=== PATIENT | female | born 1965 | race Caucasian/White ===

== ENCOUNTER 2021-07-27 16:33 | Emergency (ER) | payer OTHER, SELFPAY ==
--- NOTE | 2021-07-27 16:34 | XRR_ITS ---
PROCEDURE INFORMATION: Exam: XR Chest Exam date and time: 07/27/2021 4:34 PM Age: 56 years old Clinical indication: Pain; Chest pressure; Additional info: Chest pain TECHNIQUE: Imaging protocol: XR of the chest. Views: 1 view. COMPARISON: No relevant prior studies available. FINDINGS: Lungs: Unremarkable. No consolidation. Pleural spaces: Unremarkable. No pleural effusion. No pneumothorax. Heart/Mediastinum: Unremarkable. No cardiomegaly. Bones/joints: Unremarkable. XR/XR chest 1V portable [id number] IMPRESSION: No acute findings. Radiation Dose CTDIVOL = (mGy): DLP = (mGy-cm)
--- NOTE | 2021-07-27 16:34 | ECG_ITS ---
[facility] Test Date: 2021-07-27 Pat Name: Dorina Hayden Department: Room: Gender: Female Baker Apprentice: : 1965 Requested By: Gracia Liz Order Number: [id number] Reading MD: ALEENA ZAMARRIPA Measurements Intervals [place] Rate: 89 P: 16 [place]: 172 QRS: -3 QRSD: 93 T: 20 QT: 336 QTc: 409 Interpretive Statements SINUS RHYTHM ST ELEVATION, PROBABLY EARLY REPOLARIZATION [ST ELEVATION WITH NORMALLY INFLECTED T-WAVE] No previous ECG available for comparison Electronically Signed On 07-28-2021 14:30:36 CLERICAL SPECIALIST by ALEENA ZAMARRIPA [id number]
[2021-07-27 16:49] VITALS: BP 128/87; PULSE 89; RESP 27; TEMP 37.8; O2SAT 97; BMI 37.8
[2021-07-27 17:02] LABS: Basophils # 0.1 10^3/uL (0.0-0.1); Basophils % 0.5 %; Eosinophils % 0.1 %; Hematocrit 38.8 % (37.0-47.0); Hemoglobin 12.9 g/dL (11.5-15.3); Lymphocytes # 2.3 10^3/uL (0.8-4.8); Lymphocytes % 11.8 %; Mean Corpuscular HGB Conc 33.2 g/dL (30.0-36.0); Mean Corpuscular Hemoglobin 31.1 pg (28.0-34.0); Mean Corpuscular Volume 93.5 fl (81-99); Mean Platelet Volume 9.6 fL (7.4-10.4); Monocytes # 1.6 10^3/uL (0.2-0.9); Neutrophils # 15.36 10^3/uL (1.8-7.7); Neutrophils % 79.1 %; Nucleated Red Blood Cells % 0 %; Platelet Count 314 10^3/cmm (130-400); Red Blood Count 4.15 10^6/uL (4.1-5.3); Red Cell Distribution Width 12.3 % (12.1-15.1); White Blood Count 19.4 10^3/uL (4.0-10.0)
[2021-07-27 17:10] VITALS: BP 106/65; PULSE 88; RESP 17; O2SAT 97
[2021-07-27 17:16] LABS: D Dimer 0.35 ug/mIFEU (0-0.59)
[2021-07-27 17:30] VITALS: BP 104/60; PULSE 87; RESP 18; O2SAT 96
[2021-07-27 17:34] LABS: Alanine Aminotransferase 14 U/L (0-33); Albumin Level 4.3 g/dL (3.5-5.2); Alkaline Phosphatase 79 IU/L (35-105); Anion Gap 17.2 (5-19); Aspartate Amino Transferase 15 U/L (0-32); Blood Urea Nitrogen 10 mg/dL (6-20); Calcium 9.2 mg/dL (8.5-10.5); Carbon Dioxide 24 mmol/L (22-29); Chloride 97 mmol/L (98-107); Globulin 3.6 g/dL (1.3-4.6); Glomerular Filtration Rate 103.8 mL/min (90-130); Glucose 136 mg/dL (65-115); Osmolality Calculated 279 mOsm/kg (285-295); Potassium 4.2 mmol/L (3.5-5.1); Sodium 134 mmol/L (136-145); Total Protein 7.9 g/dL (6.6-8.7)
[2021-07-27 17:35] LABS: Troponin(5th) Baseline 6 ng/L (0-10)
--- NOTE | 2021-07-27 17:51 | CTR_ITS ---
PROCEDURE INFORMATION: Exam: CT Chest With Contrast; Diagnostic Exam date and time: 07/27/2021 5:51 PM Age: 56 years old Clinical indication: Abdominal pain; Chest pressure; Additional info: Chest pain, fever, leukocytosis TECHNIQUE: Imaging protocol: Diagnostic computed tomography of the chest with contrast. Radiation optimization: All CT scans at this facility use at least one of these dose optimization techniques: automated exposure control; mA and/or kV adjustment per patient size (includes targeted exams where dose is matched to clinical indication); or iterative reconstruction. Contrast material: OMNI 300; Contrast volume: 95 ml; Contrast route: INTRAVENOUS (IV); COMPARISON: CR (CHEST, ) 07/27/2021 4:58 PM RADIATION DOSE METRICS: Total DLP (mGy-cm): 1774.83 FINDINGS: Lungs: Minor curvilinear atelectasis or scarring at the lung bases and lingula. No consolidation. No masses. Pleural spaces: Unremarkable. No pneumothorax. No pleural effusion. Heart: No cardiomegaly. Small volume pericardial effusion. Aorta: Unremarkable. No aortic aneurysm. Lymph nodes: Unremarkable. No enlarged lymph nodes. Bones/joints: No acute fracture. Soft tissues: 1.8 cm rounded cystic collection in the subcutaneous tissues of the mid back most likely a sebaceous cyst. IMPRESSION: 1. No infectious source identified within the chest. 2. Small volume pericardial effusion. PROCEDURE INFORMATION: Exam: CT Abdomen And Pelvis With Contrast Exam date and time: 07/27/2021 5:51 PM Age: 56 years old Clinical indication: Abdominal pain; Chest pressure; Additional info: Chest pain, fever, leukocytosis TECHNIQUE: Imaging protocol: Computed tomography of the abdomen and pelvis with contrast. Radiation optimization: All CT scans at this facility use at least one of these dose optimization techniques: automated exposure control; mA and/or kV adjustment per patient size (includes targeted exams where dose is matched to clinical indication); or iterative reconstruction. Contrast material: OMNI 300; Contrast volume: 95 ml; Contrast route: INTRAVENOUS (IV); COMPARISON: CR (CHEST, ) 07/27/2021 4:58 PM RADIATION DOSE METRICS: Total DLP (mGy-cm): 1774.83 FINDINGS: Liver: Severe hepatic steatosis. No mass. Gallbladder and bile ducts: Trace stone/calcific debris. No gallbladder wall thickening No ductal dilation. Pancreas: Normal. No ductal dilation. Spleen: Normal. No splenomegaly. Adrenal glands: Normal. No mass. Kidneys and ureters: Normal. No hydronephrosis. Stomach and bowel: Unremarkable. No obstruction. No mucosal thickening. Appendix: No evidence of appendicitis. Intraperitoneal space: Unremarkable. No free air. No significant fluid collection. Vasculature: Unremarkable. No abdominal aortic aneurysm. Lymph nodes: Unremarkable. No enlarged lymph nodes. Urinary bladder: Unremarkable as visualized. Reproductive: Hysterectomy. Bones/joints: No acute fracture. Soft tissues: Unremarkable. CT/CT chest abd pel w con* IMPRESSION: 1. No infectious source identified within the abdomen. 2. Severe hepatic steatosis. 3. Trace cholelithiasis/calcified debris. Radiation Dose CTDIVOL = (mGy): DLP = 1774.83~1774.83 (mGy-cm)
--- NOTE | 2021-07-27 17:52 | ED_ITS ---
Documented by User: Mitra Troy MD 07/27/21 19:22 HPI - Chest Pain General: Chief Complaint: Chest Pain Stated Complaint: Chest Pain since early AM Time Seen by Provider: 07/27/21 16:48 Source: patient History of Present Illness: HPI narrative: 56-year-old female woke up with chest pain this morning radiating through to her back. Pain is constant, burning, aching. Associated upper abdominal bloating and indigestion. History of multiple gastric surgeries in the past, and has had similar pain in the past. No known history of coronary artery disease PE, No recent fever or upper respiratory symptoms. took 650mg aspirin earlier today. complaint: chest pain and chest discomfort Onset (ago): hour(s) Timing of current episode: constant and still present Onset: during rest Pain location: substernal Pain radiation: back Quality: tightness, aching and heaviness Relieving factors: nothing Exacerbating factors: nothing Associated symptoms: Reports abdominal pain and nausea; Deny diaphoresis, dyspnea, fever(s), palpitations, syncope or vomiting Review of Systems General: Reports: 10 or more systems reviewed and unremarkable except in HPI and below Const: Reports: change in appetite and malaise; Denies: fever(s), chills, body aches, night sweats or diaphoresis Eyes: Denies: change in vision or blurry vision ENMT: Denies: throat pain, enlarged tonsils, odynophagia or hoarseness Card: Reports: chest pain; Denies: palpitations, irregular heart rhythm, edema, swelling of feet/ankles, syncope, dyspnea on exertion or orthopnea Resp: Denies: dyspnea, productive cough, non-productive cough, stridor, pain on inspiration or chest congestion GI: Reports: abdominal pain, nausea, heartburn, early satiety and bloating; Denies: vomiting : Denies: difficulty voiding or dysuria Musc: Reports: back pain; Denies: neck pain Skin/Breast: Denies: rash, pruritus or erythema Neuro: Denies: numbness in extremities or weakness in extremities Endo: Denies: polyuria or polydipsia Physical Exam Const: COMMON NORMALS: patient oriented x3, healthy appearing and alert GENERAL APPEARANCE: well kempt, well developed and anxious; not in distress and not ill appearing NUTRITIONAL APPEARANCE: overweight HENMT: COMMON NORMALS: normocephalic and atraumatic HEAD & SCALP: normocephalic and atraumatic FACE & SINUS: normal facial exam and face symmetric Eye: COMMON NORMALS: Equal, round and reactive pupils present, EOMs intact bilaterally, conjunctivae normal and no scleral icterus CONJUNCTIVA: Yes conjunctivae normal PUPIL: Yes Equal, round and reactive pupils present Neck/C-Spine: COMMON NORMALS: full ROM, no lymphadenopathy and no JVD Chest: COMMONS NORMALS: normal inspection of the chest and normal palpation of entire chest wall CHEST: No tenderness and No Ecchymosis present Resp: COMMON NORMALS: normal respiratory effort and No use of accessory muscles EFFORT & INSPECTION: Yes able to speak in complete sentences, Yes tachypneic, No respiratory distress, No labored, No grunting and No Actively coughing Cardio: COMMON NORMALS: no JVD, regular rate, regular rhythm, S1 normal heart sound present and S2 normal heart sound present RATE: regular rate RHYTHM: regular rhythm HEART SOUNDS: S1 normal heart sound present and S2 normal heart sound present GI: PALPATION: Yes Tenderness to palpation present (GI) (epigastric, sub xiphoid), No Hernia present, No Palpable mass present, No Pulsatile mass present, No Ascites present, No Abdominal wall crepitus present and No Rebound tenderness present : EXTERNAL FEMALE EXAM: No Hernia present Extremity: COMMON NORMALS: normal to inspection, capillary refill normal, no clubbing, cyanosis or edema, no calf tenderness and no pedal edema Neuro: COMMON NORMALS: patient oriented x3, CN's II-XII intact bilaterally, moves all extremities and no focal motor deficits SENSORIUM/ORIENTATION: Yes alert Psych: APPEARANCE: Yes well kempt Skin: COMMON NORMALS: no rashes or lesions noted, no wounds, turgor normal and no jaundice GENERAL SKIN EXAM: no rashes or lesions noted and turgor normal Course Vital Signs: Vital signs: Vital Signs Temperature 100.0 F H 07/27/21 16:49 Pulse Rate 100 07/27/21 20:13 Respiratory Rate 16 07/27/21 20:13 Blood Pressure 103/69 07/27/21 20:13 Pulse Oximetry 96 07/27/21 20:13 MDM - Chest Pain MDM Narrative: Medical decision making narrative: 56 year old female with no cardiac history presenting with mid sternal pain since waking up this morning. Initial EKG had some possible ST changes, difficult to r/out due to wandering baseline and artifact. Repeat EKG did not show any concerning ST elevation. Further workup is in progress to eval for other possible etiologies including acute PE, pneumonia, Cholecystitis, aortic dissection. Signed out to Dr Savage at 1800 Medical Records: Attestation: I reviewed the patient's medical records. Lab Data: Attestation: I reviewed the patient's lab results. Labs: Lab Results 07/27/21 07/27/21 07/27/21 16:50 16:50 16:51 WBC RBC Hgb Hct MCV MCH MCHC RDW Plt Count MPV Neut % (Auto) Lymph % (Auto) Carson % (Auto) Eos % (Auto) Baso % (Auto) Neut # (Auto) Lymph # (Auto) Carson # (Auto) Eos # (Auto) Baso # (Auto) Nucleated RBC % (a uto) Nucleated RBCs # D-Dimer 0.35 ug/mIFEU ug/ mIFEU (0-0.59) Sodium Potassium Chloride Carbon Dioxide Anion Gap BUN Creatinine GFR Calculation Glucose Calculated Osmolal ity Lactic Acid 2.2 mmol/L mmol/L (0.5-2.2) Calcium Total Bilirubin AST ALT Alkaline Phosphata se Troponin T Baselin e Troponin T 120 Min [place] Troponin T C-Reactive Protein 73.0 mg/L H mg/L (0.0-4.9) Total Protein Albumin Globulin Urine Color Urine Appearance Urine pH Ur Specific Gravit y Urine Protein Urine Glucose (UA) Urine Ketones Urine Blood Urine Nitrate Urine Bilirubin Urine Urobilinogen Ur Leukocyte Maia ase Urine RBC Urine WBC Ur Squamous Epith Cells Amorphous Sediment Urine Bacteria SARS-CoV-2 Ag (Rap id) 07/27/21 07/27/21 07/27/21 16:57 16:57 16:57 WBC 19.4 10^3/uL H 10 ^3/uL (4.0-10.0) RBC 4.15 10^6/uL 10^6 /uL (4.1-5.3) Hgb 12.9 g/dL g/dL (11.5-15.3) Hct 38.8 % % (37.0-47.0) MCV 93.5 fl fl (81-99) MCH 31.1 pg pg (28.0-34.0) MCHC 33.2 g/dL g/dL (30.0-36.0) RDW 12.3 % % (12.1-15.1) Plt Count 314 10^3/cmm 10^3 /cmm (130-400) MPV 9.6 fL fL (7.4-10.4) Neut % (Auto) 79.1 % % Lymph % (Auto) 11.8 % % Carson % (Auto) 8.0 % % Eos % (Auto) 0.1 % % Baso % (Auto) 0.5 % % Neut # (Auto) 15.36 10^3/uL H 1 0^3/uL (1.8-7.7) Lymph # (Auto) 2.3 10^3/uL 10^3/ uL (0.8-4.8) Carson # (Auto) 1.6 10^3/uL H 10^ 3/uL (0.2-0.9) Eos # (Auto) 0.0 10^3/uL 10^3/ uL (0.0-0.8) Baso # (Auto) 0.1 10^3/uL 10^3/ uL (0.0-0.1) Nucleated RBC % (a uto) 0 % % Nucleated RBCs # 0.0 /100WBC /100W BC D-Dimer Sodium 134 mmol/L L mmol /L (136-145) Potassium 4.2 mmol/L mmol/L (3.5-5.1) Chloride 97 mmol/L L mmol/ L (98-107) Carbon Dioxide 24 mmol/L mmol/L (22-29) Anion Gap 17.2 (5-19) BUN 10 mg/dL mg/dL (6-20) Creatinine 0.6 mg/dL mg/dL (0.5-0.9) GFR Calculation 103.8 mL/min mL/m in (90-130) Glucose 136 mg/dL H mg/dL (65-115) Calculated Osmolal ity 279 mOsm/kg L mOs m/kg (285-295) Lactic Acid Calcium 9.2 mg/dL mg/dL (8.5-10.5) Total Bilirubin 1.0 mg/dL mg/dL (0.15-1.2) AST 15 U/L U/L (0-32) ALT 14 U/L U/L (0-33) Alkaline Phosphata se 79 IU/L IU/L (35-105) Troponin T Baselin e 6 ng/L ng/L (0-10) Troponin T 120 Min [place] Troponin T C-Reactive Protein Total Protein 7.9 g/dL g/dL (6.6-8.7) Albumin 4.3 g/dL g/dL (3.5-5.2) Globulin 3.6 g/dL g/dL (1.3-4.6) Urine Color Urine Appearance Urine pH Ur Specific Gravit y Urine Protein Urine Glucose (UA) Urine Ketones Urine Blood Urine Nitrate Urine Bilirubin Urine Urobilinogen Ur Leukocyte Maia ase Urine RBC Urine WBC Ur Squamous Epith Cells Amorphous Sediment Urine Bacteria SARS-CoV-2 Ag (Rap id) 07/27/21 07/27/21 07/27/21 18:54 18:55 19:13 WBC RBC Hgb Hct MCV MCH MCHC RDW Plt Count MPV Neut % (Auto) Lymph % (Auto) Carson % (Auto) Eos % (Auto) Baso % (Auto) Neut # (Auto) Lymph # (Auto) Carson # (Auto) Eos # (Auto) Baso # (Auto) Nucleated RBC % (a uto) Nucleated RBCs # D-Dimer Sodium Potassium Chloride Carbon Dioxide Anion Gap BUN Creatinine GFR Calculation Glucose Calculated Osmolal ity Lactic Acid Calcium Total Bilirubin AST ALT Alkaline Phosphata se Troponin T Baselin e Troponin T 120 Min [place] 6.10 ng/L ng/L (0-10) Delta Troponin T 0.10 ABS# ABS# (0-10) C-Reactive Protein Total Protein Albumin Globulin Urine Color Yellow (Yellow) Urine Appearance Clear (CLEAR) Urine pH 7 (5-7) Ur Specific Gravit y 1.005 (1.005-1.030) Urine Protein Trace (Negative) Urine Glucose (UA) Norm (Normal) Urine Ketones Negative (Negative) Urine Blood Neg (Negative) Urine Nitrate Negative (Negative) Urine Bilirubin Neg (Negative) Urine Urobilinogen Norm mg/dL mg/dL (Negative) Ur Leukocyte Maia ase Negative (Negative) Urine RBC 0-4 /hpf H /hpf (0-2) Urine WBC 0-4 /hpf H /hpf (0-5) Ur Squamous Epith Cells 0-4 /hpf H /hpf (0-5) Amorphous Sediment Not Reportable Urine Bacteria Trace /hpf /hpf (NONE) SARS-CoV-2 Ag (Rap id) Negative (Negative) EKG Data^: EKG 1: Attestation: I personally reviewed and interpreted this EKG as follows: EKG interpretation date: 07/27/21 EKG interpretation time: 16:50 Prior EKG tracings: not available for review Ischemic changes: ST elevation, non-specific ST-T wave changes and t wave inversions Computer generated interpretation: Normal sinus rhythm, rate 96, [place] 176, QRS 89, QTc 382, normal axis, abnormal ST segments in ll/ AVF, EKG 2: Attestation: I personally reviewed and interpreted this EKG as follows: EKG interpretation date: 07/27/21 EKG interpretation time: 16:52 Prior EKG tracings: available for review Interpretation: Sinus rhythm with a rate of 89, no acute STEMI, changes consistent with early repolarization. No abnormal T wave inversions or strain pattern. Discharge Plan Discharge Patient Disposition: Home Clinical Impression: Chest pain, Leukocytosis Condition: Stable Prescriptions: New cephalexin 500 mg capsule 500 mg PO TID 7 Days Qty: 21 RF: 0 Discharge Orders: Discharge ED (Routine); Ordered 07/27/21 Ordered By: Tierra Savage Referrals: Molly Nunez APN [Primary Care Provider] - 1-3 days Discharge Diet: Advance as tolerated Discharge Activity: Resume usual activity Patient Instructions: Chest Pain (ED) Coding Level of Care Code ED Medical Economics Consultant for Chg Fwd Exam Comprehensive Documented by User: Tierra Savage MD 07/27/21 20:39 HPI - Chest Pain General: Chief Complaint: Chest Pain Stated Complaint: Chest Pain since early AM Time Seen by Provider: 07/27/21 16:48 Course Vital Signs: Vital signs: Vital Signs Temperature 100.0 F H 07/27/21 16:49 Pulse Rate 100 07/27/21 20:13 Respiratory Rate 16 07/27/21 20:13 Blood Pressure 103/69 07/27/21 20:13 Pulse Oximetry 96 07/27/21 20:13 MDM - Chest Pain MDM Narrative: Medical decision making narrative: Patient presents here with chest pain is atypical in nature sharp pains complete resolved initial repeat EKG showed no STEMI she does have some repolarization initial repeat troponins are negative she does have a slight fever no white count no definite source of infection is found will prescribe her Keflex she is to follow-up with her PCP in 5 days for repeat white count. I did offer admission she states she feels improved would like to go home I feel she is stable for discharge at this time. Lab Data: Labs: Lab Results 07/27/21 07/27/21 07/27/21 16:50 16:50 16:51 WBC RBC Hgb Hct MCV MCH MCHC RDW Plt Count MPV Neut % (Auto) Lymph % (Auto) [place] % (Auto) Eos % (Auto) Baso % (Auto) Neut # (Auto) Lymph # (Auto) Carson # (Auto) Eos # (Auto) Baso # (Auto) Nucleated RBC % (a uto) Nucleated RBCs # D-Dimer 0.35 ug/mIFEU ug/ mIFEU (0-0.59) Sodium Potassium Chloride Carbon Dioxide Anion Gap BUN Creatinine GFR Calculation Glucose Calculated Osmolal ity Lactic Acid 2.2 mmol/L mmol/L (0.5-2.2) Calcium Total Bilirubin AST ALT Alkaline Phosphata se Troponin T Baselin e Troponin T 120 Min [place] Troponin T C-Reactive Protein 73.0 mg/L H mg/L (0.0-4.9) Total Protein Albumin Globulin Urine Color Urine Appearance Urine pH Ur Specific Gravit y Urine Protein Urine Glucose (UA) Urine Ketones Urine Blood Urine Nitrate Urine Bilirubin Urine Urobilinogen Ur Leukocyte Maia ase Urine RBC Urine WBC Ur Squamous Epith Cells Amorphous Sediment Urine Bacteria SARS-CoV-2 Ag (Rap id) 07/27/21 07/27/21 07/27/21 16:57 16:57 16:57 WBC 19.4 10^3/uL H 10 ^3/uL (4.0-10.0) RBC 4.15 10^6/uL 10^6 /uL (4.1-5.3) Hgb 12.9 g/dL g/dL (11.5-15.3) Hct 38.8 % % (37.0-47.0) MCV 93.5 fl fl (81-99) MCH 31.1 pg pg (28.0-34.0) MCHC 33.2 g/dL g/dL (30.0-36.0) RDW 12.3 % % (12.1-15.1) Plt Count 314 10^3/cmm 10^3 /cmm (130-400) MPV 9.6 fL fL (7.4-10.4) Neut % (Auto) 79.1 % % Lymph % (Auto) 11.8 % % Carson % (Auto) 8.0 % % Eos % (Auto) 0.1 % % Baso % (Auto) 0.5 % % Neut # (Auto) 15.36 10^3/uL H 1 0^3/uL (1.8-7.7) Lymph # (Auto) 2.3 10^3/uL 10^3/ uL (0.8-4.8) Carson # (Auto) 1.6 10^3/uL H 10^ 3/uL (0.2-0.9) Eos # (Auto) 0.0 10^3/uL 10^3/ uL (0.0-0.8) Baso # (Auto) 0.1 10^3/uL 10^3/ uL (0.0-0.1) Nucleated RBC % (a uto) 0 % % Nucleated RBCs # 0.0 /100WBC /100W BC D-Dimer Sodium 134 mmol/L L mmol /L (136-145) Potassium 4.2 mmol/L mmol/L (3.5-5.1) Chloride 97 mmol/L L mmol/ L (98-107) Carbon Dioxide 24 mmol/L mmol/L (22-29) Anion Gap 17.2 (5-19) BUN 10 mg/dL mg/dL (6-20) Creatinine 0.6 mg/dL mg/dL (0.5-0.9) GFR Calculation 103.8 mL/min mL/m in (90-130) Glucose 136 mg/dL H mg/dL (65-115) Calculated Osmolal ity 279 mOsm/kg L mOs m/kg (285-295) Lactic Acid Calcium 9.2 mg/dL mg/dL (8.5-10.5) Total Bilirubin 1.0 mg/dL mg/dL (0.15-1.2) AST 15 U/L U/L (0-32) ALT 14 U/L U/L (0-33) Alkaline Phosphata se 79 IU/L IU/L (35-105) Troponin T Baselin e 6 ng/L ng/L (0-10) Troponin T 120 Min [place] Troponin T C-Reactive Protein Total Protein 7.9 g/dL g/dL (6.6-8.7) Albumin 4.3 g/dL g/dL (3.5-5.2) Globulin 3.6 g/dL g/dL (1.3-4.6) Urine Color Urine Appearance Urine pH Ur Specific Gravit y Urine Protein Urine Glucose (UA) Urine Ketones Urine Blood Urine Nitrate Urine Bilirubin Urine Urobilinogen Ur Leukocyte Maia ase Urine RBC Urine WBC Ur Squamous Epith Cells Amorphous Sediment Urine Bacteria SARS-CoV-2 Ag (Rap id) 07/27/21 07/27/21 07/27/21 18:54 18:55 19:13 WBC RBC Hgb Hct MCV MCH MCHC RDW Plt Count MPV Neut % (Auto) Lymph % (Auto) Carson % (Auto) Eos % (Auto) Baso % (Auto) Neut # (Auto) Lymph # (Auto) Carson # (Auto) Eos # (Auto) Baso # (Auto) Nucleated RBC % (a uto) Nucleated RBCs # D-Dimer Sodium Potassium Chloride Carbon Dioxide Anion Gap BUN Creatinine GFR Calculation Glucose Calculated Osmolal ity Lactic Acid Calcium Total Bilirubin AST ALT Alkaline Phosphata se Troponin T Baselin e Troponin T 120 [place] 6.10 ng/L ng/L (0-10) Delta Troponin T 0.10 ABS# ABS# (0-10) C-Reactive Protein Total Protein Albumin Globulin Urine Color Yellow (Yellow) Urine Appearance Clear (CLEAR) Urine pH 7 (5-7) Ur Specific Gravit y 1.005 (1.005-1.030) Urine Protein Trace (Negative) Urine Glucose (UA) Norm (Normal) Urine Ketones Negative (Negative) Urine Blood Neg (Negative) Urine Nitrate Negative (Negative) Urine Bilirubin Neg (Negative) Urine Urobilinogen Norm mg/dL mg/dL (Negative) Ur Leukocyte Maia ase Negative (Negative) Urine RBC 0-4 /hpf H /hpf (0-2) Urine WBC 0-4 /hpf H /hpf (0-5) Ur Squamous Epith Cells 0-4 /hpf H /hpf (0-5) Amorphous Sediment Not Reportable Urine Bacteria Trace /hpf /hpf (NONE) SARS-CoV-2 Ag (Rap id) Negative (Negative) Discharge Plan Discharge Patient Disposition: Home Clinical Impression: Chest pain, Leukocytosis Condition: Stable Prescriptions: New cephalexin 500 mg capsule 500 mg PO TID 7 Days Qty: 21 RF: 0 Discharge Orders: Discharge ED (Routine); Ordered 07/27/21 Ordered By: Tierra Savage Referrals: Molly Nunez PRESSURE WELDER [Primary Care Provider] - 1-3 days Discharge Diet: Advance as tolerated Discharge Activity: Resume usual activity Patient Instructions: Chest Pain (ED) Coding Level of Care Code ED Medical Economics Consultant for Chg Fwd Exam Comprehensive
[2021-07-27] MEDS: iohexol 300 mg/mL 100 mL Btl IV (18:27)
--- NOTE | 2021-07-27 18:34 | ECG_ITS ---
[facility] Test Date: 2021-07-27 Pat Name: Dorina Hayden Department: Room: Gender: Female Maintenance Associate: : 1965 Requested By: Gracia Liz Order Number: [id number] Reading MD: ALEENA ZAMARRIPA Measurements Intervals [place] Rate: 94 P: 2 OR: 177 QRS: -9 QRSD: 86 T: 16 QT: 327 QTc: 410 Interpretive Statements SINUS RHYTHM ST ELEVATION, PROBABLY EARLY REPOLARIZATION [ST ELEVATION WITH NORMALLY INFLECTED T-WAVE] Compared to ECG 07/27/2021 16:52:41 No significant changes Electronically Signed On 07-28-2021 14:35:37 RECEPTIONIST by ALEENA ZAMARRIPA [id number]
[2021-07-27 18:48] LABS: Lactic Sepsis W/Reflex 2.2 mmol/L (0.5-2.2)
[2021-07-27 19:16] VITALS: BP 102/70; PULSE 93; RESP 23; O2SAT 98
[2021-07-27 19:34] LABS: SARS Covid-2 Antigen Negative (Negative)
[2021-07-27 19:49] LABS: Add Urine Culture? No; Bacteria Urine TRACE /hpf; Bilirubin Urine Neg (Negative); Blood Urine Neg (Negative); Glucose Urine UA Norm (Normal); Ketones Urine Negative (Negative); Leukocyte Esterase Urine Negative (Negative); Nitrate Urine Negative (Negative); Protein Urine Trace (Negative); RBC Urine 0-4 /hpf (0-2); Specific Gravity, Urine 1.005 (1.005-1.030); Squamous Epithelial Cell Urine 0-4 /hpf (0-5); Urine Appearance Clear (CLEAR); Urine Color Yellow (Yellow); Urobilinogen Urine Norm (Negative); WBC Urine 0-4 /hpf (0-5); pH Urine 7 (5-7)
[2021-07-27 20:13] VITALS: BP 103/69; PULSE 100; RESP 16; O2SAT 96
[2021-07-27 20:23] LABS: Reflex Lactate Order REFLEX LACTIC ORDERD
[2021-07-27 20:50] VITALS: BP 114/77; PULSE 93; RESP 22; O2SAT 97
== END 2021-07-27 20:53 | disposition home or self-care (01) ==
PROVIDERS: Family Medicine; Physician Assistant; Emergency Provider Emergency Medicine; PCP Nurse Practitioner
DX: R07.89 Other chest pain (principal); D72.829 Elevated white blood cell count, unspecified
CPT/HCPCS: 36415; 71045; 71260; 74177; 80053; 81001; 83605; 84484; 85025; 85378; 86140; 87040; 87426; 93005; 99284; Q9967

== ENCOUNTER 2025-08-25 09:27 | Outpatient (CLI) | payer OTHER, SELFPAY ==
--- NOTE | 2025-08-25 09:41 | XR_ITS ---
WS: [id number] Right knee, AP and lateral views, 08/25/2025 Clinical Data: PAIN IN RIGHT KNEE Comparison: None. Findings: No fractures or dislocations are seen. The joint spaces are normal. The patella shows a posterior superior spur. The soft tissues are unremarkable. XR/XR knee RT 1-2V 35840 Impression: Small right patellar posterior superior spur.
== END 2025-08-25 09:28 | disposition home or self-care (01) ==
PROVIDERS: PCP Nurse Practitioner Family; Visit Provider Nurse Practitioner Family
DX: M25.561 Pain in right knee (principal); M77.31 Calcaneal spur, right foot
CPT/HCPCS: 73560